=== PATIENT | female | born 1940 | race Caucasian/White ===

== ENCOUNTER 2018-09-30 19:23 | Emergency (ER) | payer MEDICARE, OTHER ==
[~2018-09-30] VITALS: Ht 162.6 cm; Wt 72.1 kg
--- OUTSIDE RECORDS SUMMARY | 2018-09-30 19:25 | XMS REPORT | Continuity of Care Document ---
Author Author [facility] Organization Interface Address Unknown Phone Unavailable Problems Problem Status Onset Date Classification Date Reported Comments Source Medications Medication Details Route Status Patient Instructions Ordering Provider Order Date Source Allergies, Adverse Reactions, Alerts Substance Category Reaction Severity Reaction type Status Date Reported Comments Source Immunizations Immunization Date Given Site Status Last Updated Comments Source Results Order Name Results Value Reference Range Date Interpretation Comments Source Vital Signs Vital Sign Value Date Comments Source Encounters Location Location Details Encounter Type Encounter Number Reason For Visit Attending Provider ADM Date DC Date Status Source Outpatient [id number] VEGA HAQ 01/05/2015 Active [facility] Outpatient [id number] VEGA HAQ 08/31/2015 Active [facility] Outpatient [id number] VEGA HAQ 05/06/2016 Active [facility] Procedures Procedure Code Date Perfomer Comments Source
--- OUTSIDE RECORDS SUMMARY | 2018-09-30 19:25 | XMS REPORT | Clinical Summary ---
Author Author [facility] Address Unknown Phone Unavailable Care Team Providers Care Clinical Laboratory Science Professor Name Role Phone Yuan Azevedo MD PCP Allergies Comments Active Allergy Reactions Severity Noted Date No Known Drug Allergies 09/06/2015 Medications End Date Status Medication Sig Dispensed Refills Start Date Active dexlansoprazole Dexilant 60 0 (DEXILANT) 60 mg capsule mg capsule, delayed release Active clopidogrel (PLAVIX) 75 clopidogrel 0 mg tablet 75 mg tablet Active aspirin (ECOTRIN) 81 MG Take 1 0 enteric coated tablet tablet(s) every day by oral route. Active telmisartan (MICARDIS) 80 Take 80 mg by 0 MG tablet mouth daily. Active quinapril (ACCUPRIL) 40 Take 40 mg by 0 MG tablet mouth nightly. 03/16/2019 Active gabapentin (NEURONTIN) Take 1 270 capsule 3 100 mg capsule (100 8 capsuleIndications: mg total) by Neuropathy mouth 3 (three) times a day. Active thyroid, pork, (ARMOUR Take 1 tablet 90 tablet 3 THYROID) 180 mg (180 mg 8 tabletIndications: total) by Hypothyroidism, mouth daily. postablative 10/09/2018 Active traMADol (ULTRAM) 50 mg Take 1 tablet 30 tablet 0 tablet (50 mg total) 9 by mouth every 6 (six) hours as needed for moderate pain for up to 10 days. Active diclofenac (VOLTAREN) 1 % Apply one 5 Tube 0 gel gram to 9 affected area daily 05/12/2018 Discontinued thyroid, pork, (ARMOUR Take 1 tablet 90 tablet 3 THYROID) 180 mg (180 mg 7 tabletIndications: total) by Hypothyroidism, mouth daily. postablative 06/29/2018 letrozole (FEMARA) 2.5 mg Take 1 tablet 90 tablet 3 chemo tablet (2.5 mg 8 total) by mouth daily. 03/16/2018 Discontinued gabapentin (NEURONTIN) Take 3 270 capsule 11 100 mg capsules (300 8 capsuleIndications: mg total) by Neuropathy mouth 3 (three) times a day. 06/14/2018 letrozole (FEMARA) 2.5 mg Take 1 tablet 90 tablet 3 chemo tablet (2.5 mg 8 total) by mouth daily for 90 days. 03/16/2018 Discontinued gabapentin (NEURONTIN) Take 1 270 capsule 3 100 mg capsule capsule (100 8 mg total) by mouth 3 (three) times a day. 05/17/2018 Discontinued thyroid, pork, (ARMOUR Take 1 tablet 90 tablet 3 THYROID) 180 mg (180 mg 8 tabletIndications: total) by Hypothyroidism, mouth daily. postablative 05/20/2018 Discontinued thyroid, pork, (ARMOUR Take 1 tablet 90 tablet 3 THYROID) 180 mg (180 mg 8 tabletIndications: total) by Hypothyroidism, mouth daily. 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 Cancer Staging: Clinical stage from 02/04/2013: Stage IIA (T1c, N1, M0) - Signed by Germán Ferreira on 11/13/2015 Encounters Care Team Description Date Type Specialty Bertin Serna PA-C Bryan, William Jay, MD Prepatellar bursitis of left knee (Primary Dx); Patellar tendinitis of left knee 09/29/2018 Office Visit Orthopedic Surgery Yecenia Hitchcock MA 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 (HCC) (Primary Dx); Estrogen receptor positive 09/16/2018 Orders Only Oncology Belkis Leung MD 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 (HCC) (Primary Dx); Age-related osteoporosis without current pathological fracture 09/14/2018 Office Visit Oncology Age-related osteoporosis without current pathological fracture (Primary Dx) 09/06/2018 Infusion Infusion Therapy Jacinta Garner RN 09/03/2018 Orders Only Infusion Therapy Jacinta Garner RN 08/18/2018 Telephone Infusion Therapy Jacinta Garner RN 07/28/2018 Telephone Infusion Therapy Jacinta Garner RN 05/27/2018 Telephone Infusion Therapy Aura Cristobal MA Hypothyroidism, postablative 05/20/2018 Orders Only Endocrinology Nancy Gutierrez MD Age-related osteoporosis without current pathological fracture (Primary Dx); Atherosclerosis of coronary artery of [place] heart without angina pectoris, unspecified vessel or lesion type; Vitamin D deficiency; Graves disease; Hypothyroidism, postablative; Paget's disease of skull; 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 (HCC); snf current use of aromatase inhibitor; Prediabetes 05/17/2018 Office Visit Endocrinology Nancy Gutierrez MD Age-related osteoporosis without current pathological fracture 05/17/2018 Ancillary Procedure Aura Cristobal MA Age-related osteoporosis without current pathological fracture (Primary Dx) 05/17/2018 Orders Only Endocrinology Aura Cristobal MA Hypothyroidism, postablative 05/12/2018 Orders Only Endocrinology Belkis Leung MD 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 (HCC) (Primary Dx) 03/16/2018 Office Visit Oncology Belkis Leung MD 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 (HCC) 03/16/2018 Hospital Radiology Encounter Stacy Martin RN Neuropathy (Primary Dx) 03/16/2018 Orders Only Oncology Belkis Leung MD 03/16/2018 Telephone Oncology Richard La MA 03/16/2018 Orders Only Oncology after 09/29/2017 Immunizations Name Dates Previously Given Next Due FLUZONE HIGH-DOSE PF 03/01/2015 Influenza Trivalent 03/01/2014 Pneumococcal 06/01/2011 Polysaccharide Family History Medical History Relation Name Comments Cancer Father Malignant neoplasm of brain Thyroid disease Father Cancer Maternal Aunt Malignant lymphoma (clinical) Diabetes Maternal Grandfather Heart disease Maternal Grandfather Heart disease Maternal Grandmother Heart disease Mother Osteoporosis Mother Relation Name Status Comments Father Malignant neoplasm of brain Maternal Aunt Malignant lymphoma (clinical) Maternal Grandfather Maternal Grandmother Mother Social History Date Tobacco Use Types Packs/Day Years Used Never Smoker Smokeless Tobacco: Never Used Alcohol Use Drinks/Week oz/Week Comments No Sex Assigned at Date Recorded Not on file Industry Job Start Date Occupation Not on file Not on file Not on file Travel End Travel History Travel Start No recent travel history available. Last Filed Vital Signs Time Taken Vital Sign Reading 09/14/2018 10:13 AM CDT Blood Pressure 180/73 09/14/2018 10:13 AM CDT Pulse 87 09/14/2018 10:13 AM CDT Temperature 36 C (96.8 F) - Respiratory Rate - 05/17/2018 10:30 AM PERSONAL ATTENDANT Oxygen Saturation 96% - Inhaled Oxygen - Concentration 09/14/2018 10:13 AM CDT Weight 76.8 kg (169 lb 5 oz) 09/14/2018 10:13 AM CDT Height 162.6 cm (5' 4") 09/14/2018 10:13 AM CDT Body Mass Index 29.06 Plan of Treatment Care Team Description Date Type Specialty Beklis Leung MD [address] [place] [id number] 03/29/2019 Appointment Radiology Belkis Leung MD [address] [place] [address] 03/29/2019 Office Visit Oncology Nancy Gutierrez MD [address] [place] [address] [phone] 06/08/2019 Ancillary Procedure Nancy Gutierrez MD [address] [facility] [place], [place] [id number] 06/08/2019 Office Visit Endocrinology Health Maintenance Due Date Last Done Comments SHINGLES VACCINES (#1) 02/03/1992 65+ PNEUMOCOCCAL VACCINE 06/01/2012 06/01/2011 (2 of 2 - PCV13) INFLUENZA VACCINE 12/30/2018 03/01/2015, 03/01/2014 PNEUMOCOCCAL Completed 06/01/2011 POLYSACCHARIDE VACCINE AGE 65 AND OVER Procedures Comments Procedure Name Priority Date/Time Associated Diagnosis XR KNEE 3 VW LEFT Routine 09/29/2018 Left knee pain, 2:24 PM CDT unspecified chronicity XR LEG LENGTH EVALUATION Routine 09/29/2018 Left knee pain, 2:24 PM CDT unspecified chronicity BONE DENSITY Routine 05/17/2018 Age-related osteoporosis 10:21 AM PERSONAL ATTENDANT without current pathological fracture MAMMO DIAGNOSTIC W CAD Routine 03/16/2018 HER2-negative carcinoma BILATERAL 9:53 AM CDT of left breast (HCC) after 09/29/2017 Results * XR Knee 3 Vw Left (09/29/2018 2:24 PM CDT) Narrative Performed At [facility] 3 x-ray views of both knees are entirely normal.The patellae are tracking concentrically.The joint spaces are normal in both knees are in anatomical alignment. Performing Organization Address [facility] Phone Number [facility] [address] [place] [address] * XR Leg Length Evaluation (09/29/2018 2:24 PM CDT) Narrative Performed At [facility] The leg alignment x-ray shows mechanical axis the past to the center of both joints were joint spaces are maintained.I see no evidence of hip nor ankle arthritis.Leg lengths are equal. Performing Organization Address [facility] Phone Number [facility] [address] [place] [address] * Bone Density (05/17/2018 10:21 AM PERSONAL ATTENDANT) Narrative Performed At [facility] [address] [facility]. [address] [place] [address] Bone Density Report Name: Deepika Willard Sex: Female Age: 78 Ethnicity: White Height: 64.5 in Referring Provider: NANCY GUTIERREZ Date of : 1940 Weight: 163.0lb Indication:Low bone mass; history of breast cancer; surgical menopause Accession number: [id number] Bone Density: Exam date 05/17/2018 Region BMD (g/cm2) T-score Z-score Classification AP Spine(L1, L2, L3) 1.0640.42.8 Normal Femoral Neck(Left) 0.646 -1.80.3 Osteopenia Total Hip(Left) 0.749 -1.60.3 Osteopenia Femoral Neck(Right) 0.676 -1.60.6 Osteopenia Total Hip(Right) 0.740 -1.70.2 Osteopenia Total Hip Mean 0.745 -1.7 0.3 Osteopenia World Health Organization criteria for BMD impression classify patients as Normal (T-score at or above 1.0), Osteopenia (T-score between 1.0 and 2.5), or Osteoporosis (T-score at or below 2.5). 10-year Fracture Risk: Major Osteoporotic Fracture 13% Hip Fracture 3.2% Reported Risk Factors: [place] (), T-score(WHO)=-1.8, BMI=27.5 FRAX Version 3.08. Fracture probability calculated for an untreated patient. Fracture probability may be lower if the patient has received treatment. Previous Exams: Region Exam Date Age BMD (g/cm2) T-score BMD Change vs. Baseline BMD Change vs. Previous AP Spine(L1, L2, L3) 05/17/2018 78 1.0640.4 2.2%* 2.3%* 05/11/2017 77 1.0400.2 -0.1% -0.1% 05/06/2016 76 1.0410.2 Total Hip(Left) 05/17/2018 78 0.749 -1.6 0.6% -2.7% 05/11/2017 77 0.770 -1.4 3.4% 3.4% 05/06/2016 76 0.744 -1.6 Total Hip(Right) 05/17/2018 78 0.740 -1.7 -3.1% -0.3% 05/11/2017 77 0.742 -1.6 -2.8% -2.8% 05/06/2016 76 0.763 -1.5 *Denotes significance at 95% confidence level, LSC for AP Spine=0.022 g/cm2,LSC for Total Hip=0.027 g/cm2 Impression: Degenerative changes limit interpretation at the spine. L1-L3 used for analysis. The patient has low bone mass, based on the Left Femoral Neck T-score. The patient has an elevated estimated ten-year risk of hip fracture of 3.2% and an estimated ten-year risk of major fracture of 13%, based on the WHO FRAX algorithm. Monitoring: No significant bone loss was observed. Discussion: BONE DENSITY IS LOW AT ONE OR MORE SKELETAL SITES. THE PATIENT'S BMD AND CLINICAL RISK FACTORS CONTRIBUTE TO THIS PATIENT'S INCREASED RISK OF FRACTURE. This patient's lowest T-score is low at one or more skeletal sites.It meets the World Health Organization's (WHO) criteria for low bone mass (T-score between -1.0 and -2.5). The patient's 10-year risk of hip fracture as calculated by FRAX exceeds the threshold where pharmacological therapy is recommended by the National Osteoporosis Foundation 3% or more for a hip fracture and 20% or more for a major fracture (NOF).However, all treatment decisions require clinical judgment and consideration of individual patient factors, including patient preferences, comorbidities, previous drug use, risk factors not captured in the FRAX model (e.g., frailty, falls, vitamin D deficiency, increased bone turnover, interval significant decline in bone density) and possible under or overestimation of fracture risk by FRAX. The patient should follow a healthful lifestyle (good nutrition with adequate calcium and vitamin D, and appropriate weight-bearing exercise). Follow-Up: Consider a repeat BMD and Vertebral Fracture Assessment (VFA) exam in 2 years or sooner if medically necessary, to reassess this patient's status. Reported by: Ruel Nichols MD, MACE, CCD on 05/18/2018 7:55:00 AM. Performing Organization Address City/State/Zipcode Phone Number [facility] [address] [place] [address] * Mammo Diagnostic w Cad Bilateral (03/16/2018 9:53 AM CDT) Narrative Performed At EXAMINATION:MAMMO DIAGNOSTIC W CAD BILATERAL [facility] INDICATION: C50.912 Malignant neoplasm of unspecified site of left female breast, annual COMPARISON:03/13/2017. Mammograms go back to 2014 for comparison. FINDINGS: There are scattered areas of fibroglandular density.There is no suspicious mass, distortion, asymmetry, or suspicious microcalcifications changes.Microclip seen centrally in the right breast from previous benign biopsy. On the left breast there is some skin retraction in the periareolar edge and some dystrophic calcification in the anterior third of the left breast. Also there is surgical clips seen in the left axilla. No development of any suspicious mass or cluster calcification. The prior exams no adverse changes. IMPRESSION:Benign findings. RECOMMENDATION: Recommend annual follow-up if there is no interval change in the physical examination. BI-RADS 2: BENIGN. [id number] Performing Organization Address City/State/Zipcode Phone Number [facility] [address] [place] [address] after 09/29/2017 Insurance Payer Benefit Subscriber ID Type Phone Address Plan / Group [facility] MEDICARE [facility] xxxxxxxxx HMO MEDICARE HMO/PPO xxxxxxxxx Advance Directives Patient has advance care planning documents on file. For more information, carrillo suarez contact: Yusuf Moura [address] [place] [address]
[2018-09-30] MEDS ORDERED: ONDANSETRON HCL 4 MG ORAL DISINTEGRATING TAB PO ONE (20:30)
[2018-09-30] MEDS ORDERED: ONDANSETRON HCL 4 MG ORAL DISINTEGRATING TAB ONE (20:33)
[2018-09-30 20:40] VITALS: BP 174/73
[2018-09-30] MEDS ORDERED: ZOFRAN4 MG SL (20:42)
[2018-09-30] MEDS ORDERED: LIDOPATCH1 EACH TOP (20:42)
== END 2018-09-30 20:42 | disposition home or self-care (01) ==
LOC: ER 19:23
DX: R11.2 Nausea with vomiting, unspecified (principal); K52.29 Other allergic and dietetic gastroenteritis and colitis
CPT/HCPCS: 99282; Q0162